=== PATIENT | male | born 1950 | race Caucasian/White ===

== ENCOUNTER 2020-07-14 13:57 | Inpatient (IN) ==
[2020-07-14] MEDS ORDERED: Naloxone 0.4 MG/ML INJ IVP PRN (14:55)
[2020-07-14] MEDS ORDERED: MOM Conc 10 ML UD.LIQ PO PRN (14:55)
[2020-07-14] MEDS ORDERED: Melatonin 3 MG TABLET PO PRN (14:55)
[2020-07-14] MEDS ORDERED: *HR* LORazepam 2 MG/ML VIAL IVP PRN (14:57)
[2020-07-14] MEDS: levETIRAcetam 250 MG TABLET PO SCH (17:31)
[2020-07-14] MEDS: *HR* LORazepam 2 MG/ML VIAL IVP PRN (17:31)
[2020-07-14] MEDS: Gabapentin 300 MG CAPSULE PO SCH (20:23)
[2020-07-15] MEDS: Ondansetron ODT 4 MG TAB.RAPDIS SL PRN (01:15)
[2020-07-15] MEDS: *HR* LORazepam 2 MG/ML VIAL IVP PRN ×7 (01:15→22:17)
[2020-07-15 05:47] LABS: Hematocrit 39.9 % (37.5-50.1); Mean Corpuscular HGB Conc 32.6 g/dL (31.6-35.5); Mean Corpuscular Hemoglobin 29.7 pg (28.0-33.3); Mean Corpuscular Volume 91.1 fL (83.0-100.0); Mean Platelet Volume 9.7 fL (9.4-12.4); Platelet Count 116 K/mcL (140-400); Red Blood Count 4.38 M/mcL (4.19-5.50); Red Cell Distribution Width 16.6 % (11.5-14.5); White Blood Count 3.5 K/mcL (4.3-11.1)
[2020-07-15] MEDS: levETIRAcetam 250 MG TABLET PO SCH ×2 (06:07→16:16)
[2020-07-15 06:09] LABS: Alanine Aminotransferase 53 Units/L (7-52); Albumin/Globulin Ratio 1.3 (1.1-2.2); Alkaline Phosphatase 62 Units/L (34-104); Aspartate Amino Transferase 72 Units/L (13-39); BUN/Creatinine Ratio 10 (6-26); Blood Urea Nitrogen 6 mg/dL (8-23); Calcium 8.8 mg/dL (8.6-10.3); Carbon Dioxide 22 mEq/L (23-29); Chloride 102 mEq/L (98-107); Glucose 74 mg/dL (70-105); Osmolality,Calculated 278 (280-300); Sodium 136 mEq/L (136-145); eGFR For African Americans > 60 (> 60); eGFR For Non-African Americans > 60 (> 60)
[2020-07-15] MEDS ORDERED: Ibuprofen 600 MG TABLET PO ONE (06:30)
[2020-07-15] MEDS: Thiamine (B-1) 100 MG TABLET PO SCH (08:25)
[2020-07-15] MEDS: amLODIPine 5 MG TABLET PO SCH (08:25)
[2020-07-15] MEDS: Gabapentin 300 MG CAPSULE PO SCH ×3 (08:25→22:16)
[2020-07-15] MEDS: Folic Acid 1 MG TABLET PO SCH (08:26)
[2020-07-15] MEDS: Vitamin B Complex/Vit C/Vit E 1 EACH TABLET PO SCH (08:26)
[2020-07-16] MEDS: *HR* LORazepam 2 MG/ML VIAL IVP PRN ×2 (01:39→15:12)
[2020-07-16] MEDS: levETIRAcetam 250 MG TABLET PO SCH ×2 (05:46→17:24)
[2020-07-16 06:08] LABS: Basophils % 0.8 %; Eosinophils # 0.1 K/mcL (0.0-0.6); Eosinophils % 2.1 %; Hematocrit 42.9 % (37.5-50.1); Hemoglobin 13.8 g/dL (12.9-16.9); Immature Granulocytes % 0.3 % (0-4); Lymphocytes # 0.7 K/mcL (0.6-4.6); Lymphocytes % 18.2 %; Mean Corpuscular HGB Conc 32.2 g/dL (31.6-35.5); Mean Corpuscular Hemoglobin 29.2 pg (28.0-33.3); Mean Corpuscular Volume 90.7 fL (83.0-100.0); Mean Platelet Volume 9.8 fL (9.4-12.4); Monocytes # 0.7 K/mcL (0.0-1.3); Monocytes % 17.7 %; Neutrophils # 2.3 K/mcL (1.6-8.9); Platelet Count 119 K/mcL (140-400); Red Blood Count 4.73 M/mcL (4.19-5.50); Red Cell Distribution Width 15.9 % (11.5-14.5); Segmented Neutrophils % 60.9 %; White Blood Count 3.8 K/mcL (4.3-11.1)
[2020-07-16 06:28] LABS: Alanine Aminotransferase 41 Units/L (7-52); Albumin/Globulin Ratio 1.3 (1.1-2.2); Alkaline Phosphatase 63 Units/L (34-104); Aspartate Amino Transferase 47 Units/L (13-39); BUN/Creatinine Ratio 14 (6-26); Bilirubin,Total 1.2 mg/dL (0.3-1.0); Blood Urea Nitrogen 7 mg/dL (8-23); Calcium 9.3 mg/dL (8.6-10.3); Carbon Dioxide 24 mEq/L (23-29); Chloride 99 mEq/L (98-107); Glucose 90 mg/dL (70-105); Osmolality,Calculated 272 (280-300); Potassium 3.5 mEq/L (3.5-5.1); Sodium 132 mEq/L (136-145); eGFR For African Americans > 60 (> 60); eGFR For Non-African Americans > 60 (> 60)
[2020-07-16] MEDS: Vitamin B Complex/Vit C/Vit E 1 EACH TABLET PO SCH (07:44)
[2020-07-16] MEDS: Gabapentin 300 MG CAPSULE PO SCH ×3 (07:44→20:07)
[2020-07-16] MEDS: Thiamine (B-1) 100 MG TABLET PO SCH (07:44)
[2020-07-16] MEDS: Folic Acid 1 MG TABLET PO SCH (07:44)
[2020-07-16] MEDS: amLODIPine 5 MG TABLET PO SCH (07:44)
[2020-07-16] MEDS: Tiotropium 10 INH DOSE IH SCH (08:06)
[2020-07-17] MEDS ORDERED: Ibuprofen 600 MG TABLET PO ONE (04:55)
[2020-07-17] MEDS: levETIRAcetam 250 MG TABLET PO SCH ×2 (05:08→17:27)
[2020-07-17] MEDS: Ondansetron ODT 4 MG TAB.RAPDIS SL PRN (05:45)
[2020-07-17 06:39] LABS: Hematocrit 43.7 % (37.5-50.1); Hemoglobin 14.3 g/dL (12.9-16.9); Immature Platelets 4.9 % (1.1-6.1); Mean Corpuscular HGB Conc 32.7 g/dL (31.6-35.5); Mean Corpuscular Hemoglobin 29.7 pg (28.0-33.3); Mean Corpuscular Volume 90.9 fL (83.0-100.0); Mean Platelet Volume 9.8 fL (9.4-12.4); Red Blood Count 4.81 M/mcL (4.19-5.50); White Blood Count 5.8 K/mcL (4.3-11.1)
[2020-07-17 06:57] LABS: Alanine Aminotransferase 37 Units/L (7-52); Albumin 4.1 g/dL (3.5-5.7); Albumin/Globulin Ratio 1.4 (1.1-2.2); Alkaline Phosphatase 61 Units/L (34-104); Aspartate Amino Transferase 44 Units/L (13-39); BUN/Creatinine Ratio 17 (6-26); Bilirubin,Total 1.1 mg/dL (0.3-1.0); Blood Urea Nitrogen 11 mg/dL (8-23); Calcium 9.5 mg/dL (8.6-10.3); Carbon Dioxide 24 mEq/L (23-29); Chloride 99 mEq/L (98-107); Glucose 102 mg/dL (70-105); Osmolality,Calculated 274 (280-300); Potassium 3.5 mEq/L (3.5-5.1); Sodium 132 mEq/L (136-145); Total Protein 7.1 g/dL (6.4-8.9); eGFR For African Americans > 60 (> 60); eGFR For Non-African Americans > 60 (> 60)
[2020-07-17] MEDS: Tiotropium 10 INH DOSE IH SCH (08:03)
[2020-07-17] MEDS: Folic Acid 1 MG TABLET PO SCH (08:27)
[2020-07-17] MEDS: Thiamine (B-1) 100 MG TABLET PO SCH (08:27)
[2020-07-17] MEDS: Gabapentin 300 MG CAPSULE PO SCH ×3 (08:27→19:28)
[2020-07-17] MEDS: amLODIPine 5 MG TABLET PO SCH (08:27)
[2020-07-17] MEDS: Vitamin B Complex/Vit C/Vit E 1 EACH TABLET PO SCH (08:28)
[2020-07-18] MEDS ORDERED: Ibuprofen 600 MG TABLET PO ONE (00:25)
[2020-07-18] MEDS: levETIRAcetam 250 MG TABLET PO SCH (05:00)
[2020-07-18 05:11] LABS: Hematocrit 42.8 % (37.5-50.1); Hemoglobin 14.1 g/dL (12.9-16.9); Mean Corpuscular HGB Conc 32.9 g/dL (31.6-35.5); Mean Corpuscular Volume 91.1 fL (83.0-100.0); Mean Platelet Volume 10.1 fL (9.4-12.4); Platelet Count 147 K/mcL (140-400); Red Cell Distribution Width 15.9 % (11.5-14.5); White Blood Count 5.8 K/mcL (4.3-11.1)
[2020-07-18 05:33] LABS: BUN/Creatinine Ratio 24 (6-26); Blood Urea Nitrogen 17 mg/dL (8-23); Calcium 9.4 mg/dL (8.6-10.3); Carbon Dioxide 24 mEq/L (23-29); Chloride 100 mEq/L (98-107); Glucose 107 mg/dL (70-105); Osmolality,Calculated 280 (280-300); Potassium 3.3 mEq/L (3.5-5.1); Sodium 134 mEq/L (136-145); eGFR For African Americans > 60 (> 60); eGFR For Non-African Americans > 60 (> 60)
[2020-07-18] MEDS: Folic Acid 1 MG TABLET PO SCH (07:39)
[2020-07-18] MEDS: amLODIPine 5 MG TABLET PO SCH (07:39)
[2020-07-18] MEDS: Gabapentin 300 MG CAPSULE PO SCH ×2 (07:39→14:12)
[2020-07-18] MEDS: Vitamin B Complex/Vit C/Vit E 1 EACH TABLET PO SCH (07:39)
[2020-07-18] MEDS: Thiamine (B-1) 100 MG TABLET PO SCH (07:39)
[2020-07-18] MEDS: Tiotropium 10 INH DOSE IH SCH (07:59)
[2020-07-18 10:49] LABS: Adenovirus Not Detected (Not Detect); Bordetella Pertussis Not Detected (Not Detect); Chlamydophila pneumoniae Not Detected (Not Detect); Coronavirus 229E Not Detected (Not Detect); Coronavirus HKU1 Not Detected (Not Detect); Coronavirus NL63 Not Detected (Not Detect); Coronavirus OC43 Not Detected (Not Detect); Human Metapneumovirus Not Detected (Not Detect); Human Rhinovirus/Enterovirus Not Detected (Not Detect); Influenza A Subtype 2009 H1 Not Detected (Not Detect); Influenza B Not Detected (Not Detect); Mycoplasma pneumoniae Not Detected (Not Detect); Parainfluenza Virus 1 Not Detected (Not Detect); Parainfluenza Virus 2 Not Detected (Not Detect); Parainfluenza Virus 3 Not Detected (Not Detect); Parainfluenza Virus 4 Not Detected (Not Detect); Respiratory Syncytial Virus Not Detected (Not Detect); SARS-CoV-2 Not Detected (Not Detect)
[2020-07-18] MEDS ORDERED: *HR* LORazepam 0.5 MG TABLET PO ONE (11:26)
[2020-07-18] MEDS ORDERED: Acetaminophen 325 MG TABLET PO ONE (13:58)
[2020-07-18 14:46] VITALS: BP 135/83
== END 2020-07-18 17:12 | DRG 897 ==
LOC: EMEROOARM 13:57 → 3BNU 13:57 → SUATTDRO 15:00 → 3BNU 15:55
PROVIDERS: ADMIT Internal Medicine; ATTEND Nurse Practitioner